=== PATIENT | female | born 1995 | race Caucasian/White ===

== ENCOUNTER 2016-10-02 13:45 | Emergency (ER) | payer BC ==
--- NOTE | ~2016-10-02 | ER ---
PATIENT'S NAME: LEANA RIBEIRO [facility] AGE: 21 Y [address] ROOM: [place] [address] LOCATION: [facility] ADMIT DATE: 10/02/2016 ER/Outpatient Report DISCHARGE DATE: 10/02/2016 FAMILY PHYSICIAN: Long Wilson MD ATTENDING PHYSICIAN: Alexi Jacques Time of Patient's Arrival: 1345 hours. Time of Patient's Evaluation: 1355 hours. CHIEF COMPLAINT: Abdominal cramping, 8 weeks' , and vaginal spotting. HISTORY OF PRESENT ILLNESS: This is a 21-year-old female who presents to the ER. She states she is having some period-like cramps and some brown spotting for the past 24 hours. The patient states that she took a home test and she believes she is about 8-9 weeks' . She states that she has also troubles with constipation. She does not feel like she has had a good bowel movement in 2 weeks. She has had no nausea or vomiting. No troubles with urination. She states she has had no fever or chills, and she has not been seen yet by her primary care physician for this . She states she takes vitamins when she remembers. ALLERGIES: NO KNOWN ALLERGIES. MEDICATIONS: vitamins. PAST MEDICAL HISTORY: Negative. This is her third , she has 2 live children at home. SOCIAL HISTORY: She smokes a half pack a day for the last 7 years. Denies any drug or alcohol use. REVIEW OF SYSTEMS: All systems were reviewed and were negative with the exception of those discussed in the HPI. PHYSICAL EXAMINATION: VITAL SIGNS: Height 5 feet 1 inch stated, weight 43 kg taken, blood pressure is 109/63, pulse 97, respirations 14, temperature 99 degrees tympanically, and saturations 96% on room air. Ismael Coma score is 15. GENERAL: Alert, thin female, in no acute distress. PATIENT'S NAME: LEANA RIBEIRO [facility] AGE: 21 Y [address] ROOM: [place] [address] LOCATION: [facility] ADMIT DATE: 10/02/2016 ER/Outpatient Report DISCHARGE DATE: 10/02/2016 FAMILY PHYSICIAN: Long Wilson MD ATTENDING PHYSICIAN: Alexi Jacques HEENT: Head: Normocephalic. She does display moist mucous membranes. LUNGS: Clear to auscultation bilaterally. HEART: Regular rate and rhythm. ABDOMEN: Soft. She has mild tenderness with palpation over suprapubic area. She has good bowel sounds throughout. No guarding, no rebound tenderness. EXTREMITIES: No clubbing or cyanosis. She does have full range of motion of all limbs. LABORATORY DATA: CBC: White count is 10.5, hemoglobin is 14.1, platelets are 279, and [place] 7[place] [address].0. Urinalysis was a clean catch. UA micro: White blood cells 0-2, red blood cells negative, epithelial 5-10, bacteria few, amorphous 3+, leukocytes 25, nitrites negative. Bedside ultrasound was done, which shows intrauterine with heart rate of 176. IMPRESSION: Vaginal spotting with intrauterine . ASSESSMENT AND PLAN: The patient was monitored for quite some time. She rested comfortably her entire stay. We will dismiss her to home. She may take Tylenol as needed. She needs to continue to monitor symptoms closely. Advised pelvic rest until she follows up with her primary care physician. She needs to continue her vitamins and I would like her to follow up with her doctor in 1-2 days. The patient understands and agrees with care. CAROLE SANTILLAN PA-C FOR DO DANIEL CAN/jessica /[id number] d: 10/02/162233 t: 10/08/161910, OUTPATIENT REPORT
[~2016-10-02 13:45] MED LIST: ACETAMINOPHEN325 MG PO; COLACE100 MG PO; MOTRIN800 MG PO; PERCOCET 5-3251 EACH PO; PRENATAL 1+1)(P1 TAB PO; SURFAK240 MG PO
[2016-10-02 14:18] LABS: BILIRUBIN URINE NEGATIVE (NEGATIVE); BLOOD URINE 10 /UL (NEGATIVE); COLOR URINE YELLOW (YELLOW); GLUCOSE URINE NEGATIVE (NEGATIVE); KETONE URINE NEGATIVE (NEGATIVE); LEUKOCYTES URINE 25 /UL (NEGATIVE); NITRITE URINE NEGATIVE (NEGATIVE); PROTEIN URINE NEGATIVE (NEGATIVE); SPEC GRAVITY URINE 1.015 (1.003-1.035); TURBIDITY URINE 4+ (CLEAR); UROBILINOGEN URINE 1 mg/dL (NORMAL)
[2016-10-02 14:22] LABS: BASOPHIL % 0.2 %; EOSINOPHIL # 0.1 K/uL (0.0-0.5); EOSINOPHIL % 0.7 %; HEMATOCRIT 40.9 % (33.0-46.0); HEMOGLOBIN 14.1 g/dL (11.0-15.0); IMMATURE GRANULOCYTE # 0.1 K/uL (0.0-0.3); IMMATURE GRANULOCYTE % 0.5 %; LYMPHOCYTE # 2.7 K/uL (0.8-4.0); LYMPHOCYTE % 25.4 %; MCH 30.6 pg (27.0-34.0); MCHC 34.5 gm/dL (32.0-36.5); MCV 88.7 fl (83.0-98.0); MONOCYTE # 0.5 K/uL (0.0-1.0); MONOCYTE % 4.6 %; MPV 8.9 fl (9.4-12.4); NEUTROPHIL # (ANC) 7.2 K/uL (1.8-7.8); NEUTROPHIL % 68.6 %; NRBC % 0 /100WBC (0-0.00); PLATELET COUNT 279 K/uL (150-450); WBC 10.5 K/uL (4.0-11.0)
[2016-10-02 14:23] LABS: RBC 4.61 M/uL (3.50-5.00)
[2016-10-02 14:32] LABS: AMORPHOUS URINE 3+ (NEGATIVE); BACTERIA URINE FEW (NEGATIVE); RBC URINE NEGATIVE #/HPF (NEGATIVE); WBC URINE 0-2 #/HPF (NEGATIVE)
== END 2016-10-02 15:12 | disposition disaster alternative care site (69) ==
LOC: GMED 13:45
PROVIDERS: Emergency Medicine
DX: O26.851 Spotting complicating pregnancy, first trimester (principal); O99.331 Smoking (tobacco) complicating pregnancy, first trimester; F17.210 Nicotine dependence, cigarettes, uncomplicated; Z3A.08 8 weeks gestation of pregnancy; Z79.899 Other long term (current) drug therapy